=== PATIENT | male | born 1935 | race Caucasian/White ===

== ENCOUNTER 2017-03-17 11:44 | Emergency (ER) | payer MEDICARE ==
[~2017-03-17] VITALS: Ht 172.7 cm; Wt 81.0 kg
[2017-03-17 13:49] VITALS: BP 128/62
== END 2017-03-17 13:49 | disposition home or self-care (01) ==
LOC: ED 11:44
DX: R22.41 Localized swelling, mass and lump, right lower limb (principal); E11.9 Type 2 diabetes mellitus without complications; M79.604 Pain in right leg; X50.1XXA Overexertion from prolonged static or awkward postures, initial encounter; Y93.I9 Activity, other involving external motion; Y92.810 Car as the place of occurrence of the external cause; Z95.818 Presence of other cardiac implants and grafts

== ENCOUNTER 2017-04-26 08:54 | Emergency (ER) | payer MEDICARE ==
[~2017-04-26] VITALS: Ht 172.7 cm; Wt 98.0 kg
[2017-04-26 09:32] LABS: HEMATOCRIT 20.6 % (39.0-50.0); IMMATURE GRANULOCYTES 1.1 % (0.0-1.0); MEAN CELL VOLUME 92.8 fL CALC (80.0-100.0); MEAN CORPUSCULAR HGB 30.2 pG CALC (26.0-32.0); MEAN CORPUSCULAR HGB CONC 32.5 g/L CALC (32.0-36.0); NEUT# 5.18 thou/uL (1.82-7.42); RED BLOOD COUNT 2.22 mill/uL (4.70-6.10); RED CELL DISTRI WIDTH 13.3 % (11.5-15.5)
[2017-04-26 09:43] LABS: HEMOGLOBIN 6.7 g/dl (14.0-18.0)
[2017-04-26 09:46] LABS: CREATININE 1.4 mg/dL (0.7-1.3); POTASSIUM 4.5 mmol/l (3.5-5.1)
[2017-04-26 09:47] LABS: INTERNATIONAL NORMALIZED RATIO 0.9 RATIO (0.7-1.3); PROTHROMBIN TIME 10.2 SECONDS (9.0-12.5)
[2017-04-26] MEDS ORDERED: ALFUZOSIN HCL E10 MG PO (10:35)
[2017-04-26] MEDS ORDERED: ASPIRIN81 MG PO (10:36)
[2017-04-26] MEDS ORDERED: FERR SULFATE325 MG PO (10:36)
[2017-04-26] MEDS ORDERED: METFORMIN500 MG PO (10:37)
[2017-04-26] MEDS ORDERED: ZESTRIL10 M1 PO (10:37)
[2017-04-26] MEDS ORDERED: SIMVASTATIN10 MG PO (10:38)
[2017-04-26] MEDS ORDERED: BRILINTA90 MG PO (10:38)
[2017-04-26] MEDS ORDERED: PREDNISONE10 MG PO (10:38)
[2017-04-26] MEDS ORDERED: LEVOTHYROXIN50 MCG PO (10:39)
[2017-04-26 11:00] VITALS: BP 97/48
[2017-04-26 11:21] VITALS: BP 101/51
[2017-04-26 11:51] VITALS: BP 101/51
== END 2017-04-26 11:51 | disposition short-term general hospital (02) ==
LOC: ED 08:54
PROVIDERS: Family Medicine
PROC: 30233N1 Transfusion of Nonautologous Red Blood Cells into Peripheral Vein, Percutaneous Approach (ICD-10-PCS; principal; 2017-04-26)
DX: K92.2 Gastrointestinal hemorrhage, unspecified (principal); D64.9 Anemia, unspecified; R19.5 Other fecal abnormalities; R06.02 Shortness of breath; I10 Essential (primary) hypertension; E11.9 Type 2 diabetes mellitus without complications; D50.9 Iron deficiency anemia, unspecified; Z95.9 Presence of cardiac and vascular implant and graft, unspecified; I48.91 Unspecified atrial fibrillation
CPT/HCPCS: P9016; S0164

== ENCOUNTER 2022-02-23 14:40 | Emergency (ER) | payer MEDICARE ==
[~2022-02-23] VITALS: Ht 177.8 cm; Wt 77.0 kg
[~2022-02-23 14:40] MED LIST: ALFUZOSIN HCL E10 MG PO; ASPIRIN81 MG PO; BRILINTA90 MG PO; FERR SULFATE325 MG PO; LEVOTHYROXIN50 MCG PO; METFORMIN500 MG PO; PREDNISONE10 MG PO; SIMVASTATIN10 MG PO; ZESTRIL10 M1 PO
[2022-02-23] MEDS ORDERED: TAM75CAP PO (16:48)
[2022-02-23 17:10] VITALS: BP 125/49
== END 2022-02-23 17:10 | disposition home or self-care (01) ==
LOC: ED 14:40
DX: J10.1 Influenza due to other identified influenza virus with other respiratory manifestations (principal); I10 Essential (primary) hypertension; E11.9 Type 2 diabetes mellitus without complications; Z95.5 Presence of coronary angioplasty implant and graft; Z79.84 Long term (current) use of oral hypoglycemic drugs; Z20.822 Contact with and (suspected) exposure to COVID-19